=== PATIENT | male | born 1960 | race Hispanic/Latino ===

== ENCOUNTER 2021-01-05 15:22 | Emergency (ER) | payer OTHER, BC ==
[~2021-01-05] VITALS: Ht 170.2 cm; Wt 75.0 kg
[2021-01-05] MEDS ORDERED: KEFLEX500 M1 PO (16:37)
[2021-01-05 17:00] VITALS: BP 136/93
== END 2021-01-05 17:00 | disposition home or self-care (01) | DRG 605 ==
LOC: ED 15:22
PROC: 0HQLXZZ Repair Left Lower Leg Skin, External Approach (ICD-10-PCS; principal; 2021-01-05)
DX: S81.812A Laceration without foreign body, left lower leg, initial encounter (principal); W60.XXXA Contact with nonvenomous plant thorns and spines and sharp leaves, initial encounter; Y99.0 Civilian activity done for income or pay

== ENCOUNTER 2021-01-13 17:29 | Emergency (ER) | payer OTHER, BC ==
[~2021-01-13] VITALS: Ht 170.2 cm; Wt 85.0 kg
[~2021-01-13 17:29] MED LIST: KEFLEX500 M1 PO
[2021-01-13 19:23] VITALS: BP 131/60
== END 2021-01-13 19:23 | disposition home or self-care (01) | DRG 950 ==
LOC: ED 17:29
DX: S81.812D Laceration without foreign body, left lower leg, subsequent encounter (principal); X58.XXXD Exposure to other specified factors, subsequent encounter